=== PATIENT | female | born 2000 | race Caucasian/White ===

== ENCOUNTER 2018-07-24 20:55 | Emergency (ER) | payer BC ==
[2018-07-24 21:05] VITALS: BP 133/87
--- NOTE | 2018-07-24 21:06 | ER Report ---
History and Physical Time Seen By MD: 21:06 HPI/ROS CHIEF COMPLAINT: Allergic reaction HISTORY OF PRESENT ILLNESS: 17-year-old female presents ambulatory to the ER complaining of allergic reaction. She notes itching and hives around her neck. She notes she notes some throat swelling sensation. She was diagnosed with a UTI earlier today. She's taken a single dose of Omnicef 300 mg. He's never had allergic reaction before. REVIEW OF SYSTEMS: Respiratory: No cough, no dyspnea. Cardiovascular: No chest pain, no palpitations. Gastrointestinal: No vomiting, no abdominal pain. Musculoskeletal: No back pain. Allergies: Coded Allergies: cefdinir (Verified Allergy, Intermediate, ITCHING, 07/24/18) Home Meds Active Scripts Amoxicillin (AMOXICILLIN) 875 Mg Tablet, 1 TAB PO Q12H for infection, #12 TAB Prov:DICKSON DAVIS DO 07/24/18 Reported Medications [Bcp] No Conflict Check 07/24/18 Buspirone Hcl (BUSPIRONE HCL) 7.5 Mg Tablet, 7.5 MG PO BID, #10 TAB 07/24/18 Cefdinir 300 Mg Cap (OMNICEF 300 MG CAP (OR EQUIV)) 300 Mg Cap, 300 MG PO BID, CAP 07/24/18 Reviewed Nurses Notes: Yes Old Medical Records Reviewed: Yes Constitutional Vital Sign - Last 24 Hours 07/24/18 07/24/18 07/24/18 07/24/18 21:03 21:05 21:15 21:30 Temp 98.5 Pulse 86 91 91 Resp 16 B/P (MAP) 133/87 133/87 (102) Pulse Ox 99 97 99 O2 Delivery Room Air 07/24/18 21:45 Pulse 86 Pulse Ox 97 Physical Exam General Appearance: The patient is alert, has no immediate need for airway protection and no current signs of toxicity. Vital signs stable, afebrile, no respiratory distress, pulse ox normal HEENT: Pupils equal and round no injection. Oropharynx without redness or edema. Respiratory: Chest is non tender, lungs are clear to auscultation. No wheezing Cardiac: regular rate and rhythm Gastrointestinal: Abdomen is soft and non tender, no masses, bowel sounds normal. Musculoskeletal: Neck: Neck is supple and non tender. Extremities have full range of motion and are non tender. Skin: No rashes or lesions. Flushing of the skin around the neck and chest DIFFERENTIAL DIAGNOSIS: After history and physical exam differential diagnosis was considered for allergic reaction, urticaria, infection, anaphylaxis Medical Decision Making ED Course/Re-evaluation ED Course Patient was admitted to an examination room. H&P was done. The differential diagnosis was considered. Patient with acute allergic reaction symptoms. No signs of anaphylaxis. She is treated with prednisone 40 mg by mouth and Benadryl. She is advised to discontinue the Omnicef. Patient's discharged home. Patient's advised Benadryl 25 mg every 6-8 hours as needed for hives and itching. Patient's given a prescription for amoxicillin which she is taken before without reaction. Patient cautioned return to the ER for any worsening. 07/24/2018 9:47:17 pm patient feeling better on reevaluation. We'll discharge with a change of antibiotic. Decision to Disposition Date: Jul 24, 2018 Decision to Disposition Time: 21:47 Depart Departure Latest Vital Signs Vital Signs Date Time Temp Pulse Resp B/P (MAP) Pulse Ox O2 Delivery O2 Flow Rate FiO2 07/24/18 21:45 86 97 07/24/18 21:05 133/87 (102) 07/24/18 21:03 98.5 16 Room Air Impression: Primary Impression: Allergic reaction caused by a drug Additional Impression: Urinary tract infection Condition: Improved Disposition: HOME OR SELF-CARE New Scripts Amoxicillin (AMOXICILLIN) 875 Mg Tablet 1 TAB PO Q12H for infection, #12 TAB Prov: DICKSON DAVIS DO 07/24/18 Patient Instructions: General Allergic Reaction (ED), Urinary Tract Infection in Women (ED) Additional Instructions: Stop taking current antibiotic, Omnicef/Ceftdnir list as an allergy in the [facility] A new prescription of Amoxicillin will be provided. Take Benadryl 25 mg every 6-8 hours as needed for itching or hives Problem Qualifiers Primary Impression: Allergic reaction caused by a drug Encounter type: initial encounter Qualified Codes: T78.40XA - Allergy, unspecified, initial encounter Additional Impression: Urinary tract infection Urinary tract infection type: acute cystitis Hematuria presence: without hematuria Qualified Codes: N30.00 - Acute cystitis without hematuria DICKSON DAVIS DO Jul 24, 2018 21:06
[2018-07-24] MEDS ORDERED: CEF300 PO (21:11)
[2018-07-24] MEDS ORDERED: BUSP7.5T7 PO (21:11)
[2018-07-24] MEDS ORDERED: BCP (21:11)
[2018-07-24] MEDS ORDERED: predniSONE 20 MG TAB PO ONE (21:15)
[2018-07-24] MEDS ORDERED: diphenhydrAMINE 25 MG CAP PO ONE (21:15)
[2018-07-24] MEDS ORDERED: AMOX875T60 PO (21:49)
== END 2018-07-24 21:54 | disposition home or self-care (01) ==
LOC: ER 21:25
DX: T50.905A Adverse effect of unspecified drugs, medicaments and biological substances, initial encounter (principal); N30.00 Acute cystitis without hematuria
CPT/HCPCS: 99283; J7512; Q0163